=== PATIENT | male | born 1945 | race Caucasian/White ===

== ENCOUNTER 2017-10-15 07:20 | Day surgery (SDC) | payer OTHER ==
[~2017-10-15] VITALS: Ht 182.9 cm; Wt 102.1 kg
[~2017-10-15 07:20] MED LIST: AMLO10 PO; ATOR10 PO; ATOR40TA PO; Augmentin 875-1 EACH PO; Dyazide 37.5-21 EACH PO; GLIM4 PO; Humalog100 UNIT/3 SC; INSULANPEN SC; METF500 PO; Percocet 5-3251 EACH PO; Zestril40 MG PO
== END 2017-10-15 09:21 | disposition home or self-care (01) ==
LOC: ORSCMMR 07:20
PROVIDERS: Internal Medicine Gastroenterology
PROC: 0DBK8ZX Excision of Ascending Colon, Via Natural or Artificial Opening Endoscopic, Diagnostic (ICD-10-PCS; principal; 2017-10-15 08:30)
PROC: 0DBL8ZX Excision of Transverse Colon, Via Natural or Artificial Opening Endoscopic, Diagnostic (ICD-10-PCS; principal; 2017-10-15 08:30)
DX: Z12.11 Encounter for screening for malignant neoplasm of colon (principal); D12.2 Benign neoplasm of ascending colon; D12.3 Benign neoplasm of transverse colon; K57.30 Diverticulosis of large intestine without perforation or abscess without bleeding; E11.9 Type 2 diabetes mellitus without complications; I10 Essential (primary) hypertension; N40.0 Benign prostatic hyperplasia without lower urinary tract symptoms; Z79.4 Long term (current) use of insulin; Z79.899 Other long term (current) drug therapy; Z87.891 Personal history of nicotine dependence
CPT/HCPCS: 82947; 88305; J7120

== ENCOUNTER 2017-11-12 09:21 | Day surgery (SDC) | END 2017-11-12 22:49 | disposition home or self-care (01) ==

== ENCOUNTER → 2017-12-13 | Outpatient (CLI) | payer OTHER ==
[2017-12-13 11:32] LABS: Hematocrit 40.6 % (37.0-53.0); Hemoglobin 13.7 g/dL (13.5-17.5)
[2017-12-13 11:45] LABS: Albumin, Blood 3.5 g/dL (3.4-5.0); Anion Gap 8 mmol/L (6-16); Blood Urea Nitrogen 30 mg/dL (8-24); Bun/Creatinine Ratio 25.2 (12.0-20.0); CO2, Blood 25 mmol/L (21-32); Calcium, Blood 8.8 mg/dL (8.5-10.1); Chloride, Blood 108 mmol/L (98-108); Creatinine, Blood 1.19 mg/dL (0.60-1.20); Glomerular Filtration Rate >60 (60-); Glucose, Blood 244 mg/dL (70-99); Phosphorus, Blood 4.3 mg/dL (2.5-4.9); Potassium, Blood 4.3 mmol/L (3.5-5.5); Sodium, Blood 141 mmol/L (136-145)
[2017-12-13 11:49] LABS: Creatinine, Urine Random 42.4 mg/dL (27.00-270.00); Protein, Urine Random 134.5 mg/dL (0.0-11.9)
== END ==
LOC: OLS 10:32
PROVIDERS: Internal Medicine
DX: N18.3 Chronic kidney disease, stage 3 (moderate) (principal); D63.1 Anemia in chronic kidney disease
CPT/HCPCS: 36415; 80069; 82570; 84156; 85014; 85018

== ENCOUNTER → 2019-03-27 | Outpatient (CLI) | payer OTHER ==
[2019-03-27 09:33] LABS: Creatinine Urine 39.5 mg/dL (27.00-270.00)
== END | disposition home or self-care (01) ==
LOC: LAB 08:15 → LAB SHORT 08:15
PROVIDERS: Internal Medicine
DX: N17.9 Acute kidney failure, unspecified (principal)
CPT/HCPCS: 82575

== ENCOUNTER → 2020-02-26 | Outpatient (CLI) | payer OTHER ==
[2020-02-26 16:49] LABS: Bilirubin, Urine Neg (Neg); Blood, Urine Neg (Neg); Glucose Qualitative, Urine 3+ (Neg); Ketones, Urine Neg (Neg); Leukocyte Esterase, Urine Neg (Neg); Nitrite, Urine Neg (Neg); Protein, Urine 2+ (Neg); Specific Gravity, Urine 1.015 (1.003-1.022); Urobilinogen, Urine NORM (Normal)
[2020-02-26 17:05] LABS: Appearance, Urine Clear (Clear); Color, Urine Yellow (P-Yellow)
[2020-02-26 17:06] LABS: Bacteria Rare /hpf; Red Blood Cells, Urine 0-2 /hpf (0-2); Squamous Epithelial Cells Rare /hpf (Few); White Blood Cells, Urine 0-2 /hpf (0-5)
[2020-02-26 17:26] LABS: Creatinine, Urine Random 98.4 mg/dL (27.00-270.00); Protein, Urine Random 33.4 mg/dL (0.0-11.9)
== END | disposition home or self-care (01) ==
LOC: LAB SHORT 14:39 → LAB 14:39
PROVIDERS: Internal Medicine
DX: N18.2 Chronic kidney disease, stage 2 (mild) (principal)
CPT/HCPCS: 81001; 82570; 84156

== ENCOUNTER → 2021-04-11 | Outpatient (CLI) | payer OTHER ==
[2021-04-11 15:33] LABS: Creatinine, Urine Random 47.1 mg/dL (27.00-270.00); Protein, Urine Random 60.3 mg/dL (0.0-11.9); Protein/Creat Ratio, Ur Random 1.3
== END | disposition home or self-care (01) ==
LOC: LAB SHORT 12:57
PROVIDERS: Internal Medicine
DX: N18.2 Chronic kidney disease, stage 2 (mild) (principal)
CPT/HCPCS: 82570; 84156

== ENCOUNTER → 2021-12-12 | Outpatient (CLI) | payer OTHER ==
[2021-12-12 15:13] LABS: Creatinine, Urine Random 50.6 mg/dL (27.00-270.00); Protein, Urine Random 26.6 mg/dL (0.0-11.9); Protein/Creat Ratio, Ur Random 0.5
== END | disposition home or self-care (01) ==
LOC: LAB SHORT 12:00
PROVIDERS: Internal Medicine Nephrology
DX: N18.31 Chronic kidney disease, stage 3a (principal)
CPT/HCPCS: 82570; 84156

== ENCOUNTER 2022-01-26 10:03 | Day surgery (SDC) | payer OTHER ==
[~2022-01-26] VITALS: Ht 182.9 cm; Wt 102.1 kg
[2022-01-26] MEDS ORDERED: SPIR25 PO (10:21)
[2022-01-26] MEDS ORDERED: ATOR20 (10:21)
== END 2022-01-26 12:53 | disposition home or self-care (01) ==
LOC: ORSCSDS 10:03
PROVIDERS: Student in an Organized Health Care Education/Training Program
PROC: 0DB68ZX Excision of Stomach, Via Natural or Artificial Opening Endoscopic, Diagnostic (ICD-10-PCS; principal; 2022-01-26 11:15)
PROC: 0DB98ZX Excision of Duodenum, Via Natural or Artificial Opening Endoscopic, Diagnostic (ICD-10-PCS; principal; 2022-01-26 11:15)
PROC: 0DB58ZX Excision of Esophagus, Via Natural or Artificial Opening Endoscopic, Diagnostic (ICD-10-PCS; principal; 2022-01-26 11:15)
PROC: 0DB48ZX Excision of Esophagogastric Junction, Via Natural or Artificial Opening Endoscopic, Diagnostic (ICD-10-PCS; principal; 2022-01-26 11:15)
DX: R13.10 Dysphagia, unspecified (principal); E11.9 Type 2 diabetes mellitus without complications; K22.70 Barrett's esophagus without dysplasia; K29.80 Duodenitis without bleeding; K20.90 Esophagitis, unspecified without bleeding; K29.70 Gastritis, unspecified, without bleeding; K44.9 Diaphragmatic hernia without obstruction or gangrene; I10 Essential (primary) hypertension; G47.33 Obstructive sleep apnea (adult) (pediatric); I48.91 Unspecified atrial fibrillation; E66.9 Obesity, unspecified; Z68.30 Body mass index [BMI] 30.0-30.9, adult; Z79.82 Long term (current) use of aspirin; Z79.4 Long term (current) use of insulin; Z79.899 Other long term (current) drug therapy
CPT/HCPCS: 82947; 88305; 88342; J2405; J2704; J7120

== ENCOUNTER 2022-05-02 07:57 | Day surgery (SDC) | payer OTHER ==
[~2022-05-02] VITALS: Ht 182.9 cm; Wt 98.3 kg
[~2022-05-02 07:57] MED LIST changes: +ATOR20; +DOXA4 PO; +SPIR25 PO; +STEGLATRO5 MG PO
[2022-05-02] MEDS ORDERED: HYDCHL25 (08:21)
[2022-05-02] MEDS ORDERED: NOVOLOG FL100 UNIT/3 (08:24)
[2022-05-02] MEDS ORDERED: INSULANI (08:24)
--- NOTE | 2022-05-02 08:43 | NUR ---
05/02/22 0843 NAMRATA JONES 1% LIDOCAINE ATOMIZED PO 3ML PER DR POWERS PRE PROCEDURE
== END 2022-05-02 10:14 | disposition home or self-care (01) ==
LOC: ORSCSDS 07:57
PROVIDERS: Student in an Organized Health Care Education/Training Program
PROC: 0DB68ZX Excision of Stomach, Via Natural or Artificial Opening Endoscopic, Diagnostic (ICD-10-PCS; principal; 2022-05-02 09:15)
PROC: 0DB98ZX Excision of Duodenum, Via Natural or Artificial Opening Endoscopic, Diagnostic (ICD-10-PCS; principal; 2022-05-02 09:15)
PROC: 0DB58ZX Excision of Esophagus, Via Natural or Artificial Opening Endoscopic, Diagnostic (ICD-10-PCS; principal; 2022-05-02 09:15)
PROC: 0DB48ZX Excision of Esophagogastric Junction, Via Natural or Artificial Opening Endoscopic, Diagnostic (ICD-10-PCS; principal; 2022-05-02 09:15)
DX: K20.90 Esophagitis, unspecified without bleeding (principal); B37.81 Candidal esophagitis; K29.80 Duodenitis without bleeding; K29.70 Gastritis, unspecified, without bleeding; K44.9 Diaphragmatic hernia without obstruction or gangrene; E11.22 Type 2 diabetes mellitus with diabetic chronic kidney disease; I12.9 Hypertensive chronic kidney disease with stage 1 through stage 4 chronic kidney disease, or unspecified chronic kidney disease; N18.9 Chronic kidney disease, unspecified; G47.33 Obstructive sleep apnea (adult) (pediatric); E78.5 Hyperlipidemia, unspecified; I48.91 Unspecified atrial fibrillation; I25.10 Atherosclerotic heart disease of native coronary artery without angina pectoris; Z79.82 Long term (current) use of aspirin; Z79.84 Long term (current) use of oral hypoglycemic drugs; Z79.899 Other long term (current) drug therapy
CPT/HCPCS: 82947; 88305; 88312; 88342; J2704; J7120

== ENCOUNTER → 2023-10-23 | Outpatient (CLI) | payer OTHER ==
[~2023-10-23] MED LIST changes: +HYDCHL25; +INSULANI; +NOVOLOG FL100 UNIT/3
== END | disposition home or self-care (01) ==
LOC: LAB SHORT 13:03 → LAB 13:03
DX: D04.39 Carcinoma in situ of skin of other parts of face (principal)
CPT/HCPCS: 88305

== ENCOUNTER 2025-04-21 13:40 | Day surgery (SDC) | payer OTHER ==
[~2025-04-21] VITALS: Ht 182.9 cm; Wt 104.4 kg
[~2025-04-21 13:40] MED LIST changes: +BASAGLAR K100 UNIT/3; +CULTURELLE KID1 EA13; +FARXIGA5 MG PO; +Flonase 0.05% N16 GM; +Glycopyrrolate 0.2 MG/ML 1MLVIAL ONE; +LISI20 PO; +METO25ER PO; +MULTI-VITAMIN1 EAC2 PO; +NITR.4SL SL; +OMEP20ER PO; +Ondansetron HCl 2 MG / ML 2ML Vial ONE; +VITAMIN D5000 UNIT PO; +Vitamin B Comple1 EA PO
[2025-04-21] MEDS ORDERED: LIVALO1 MG (13:55)
[2025-04-21] MEDS ORDERED: NOVOLIN N100 UNIT/2 (13:55)
[2025-04-21 15:43] VITALS: BP 143/61
== END 2025-04-21 15:30 | disposition home or self-care (01) ==
LOC: ORSCSDS 13:40
PROVIDERS: Specialist
PROC: 0D758ZZ Dilation of Esophagus, Via Natural or Artificial Opening Endoscopic (ICD-10-PCS; principal; 2025-04-21 15:15)
PROC: 0DB58ZX Excision of Esophagus, Via Natural or Artificial Opening Endoscopic, Diagnostic (ICD-10-PCS; principal; 2025-04-21 15:15)
PROC: 0DB68ZX Excision of Stomach, Via Natural or Artificial Opening Endoscopic, Diagnostic (ICD-10-PCS; principal; 2025-04-21 15:15)
DX: K22.70 Barrett's esophagus without dysplasia (principal); K44.9 Diaphragmatic hernia without obstruction or gangrene; K29.70 Gastritis, unspecified, without bleeding; G47.33 Obstructive sleep apnea (adult) (pediatric); I48.91 Unspecified atrial fibrillation; E11.22 Type 2 diabetes mellitus with diabetic chronic kidney disease; I12.9 Hypertensive chronic kidney disease with stage 1 through stage 4 chronic kidney disease, or unspecified chronic kidney disease; N18.9 Chronic kidney disease, unspecified; E78.5 Hyperlipidemia, unspecified; E66.9 Obesity, unspecified; Z68.31 Body mass index [BMI] 31.0-31.9, adult; Z79.4 Long term (current) use of insulin; Z79.84 Long term (current) use of oral hypoglycemic drugs; Z79.899 Other long term (current) drug therapy
CPT/HCPCS: 82947; 88305; 88312; 88341; 88342; C1769; J2003; J2405; J2704; J7120

== ENCOUNTER → 2025-09-07 | Outpatient (CLI) | payer OTHER ==
[~2025-09-07] MED LIST changes: -Glycopyrrolate 0.2 MG/ML 1MLVIAL ONE; +LIVALO1 MG; +NOVOLIN N100 UNIT/2; -Ondansetron HCl 2 MG / ML 2ML Vial ONE
[2025-09-07 15:57] LABS: Albumin, Blood 3.3 g/dL (3.4-5.0); Anion Gap 11 mmol/L (3-11); Blood Urea Nitrogen 38 mg/dL (8-24); CO2, Blood 20 mmol/L (21-32); Calcium, Blood 8.3 mg/dL (8.5-10.1); Chloride, Blood 113 mmol/L (98-108); Creatinine, Blood 2.14 mg/dL (0.60-1.20); Glucose, Blood 133 mg/dL (70-99); Phosphorus, Blood 4.2 mg/dL (2.5-4.9); Potassium, Blood 5.5 mmol/L (3.5-5.5); Sodium, Blood 138 mmol/L (136-145)
== END ==
LOC: LAB SHORT 13:39 → LAB 13:39
PROVIDERS: Internal Medicine
DX: E11.65 Type 2 diabetes mellitus with hyperglycemia (principal); I13.0 Hypertensive heart and chronic kidney disease with heart failure and stage 1 through stage 4 chronic kidney disease, or unspecified chronic kidney disease
CPT/HCPCS: 80069

== ENCOUNTER → 2025-09-15 | Outpatient (CLI) | payer OTHER ==
[2025-09-15 12:46] LABS: Campylobacter Sp Not Detected (NOT DETECT); E. Coli O157 Not Detected (NOT DETECT); Enteroaggregative E. coli-EAEC Not Detected (NOT DETECT); Enteropathogenic E. coli-EPEC Not Detected (NOT DETECT); Enterotoxigenic E. coli-ETEC Not Detected (NOT DETECT); Salmonella Sp Not Detected (NOT DETECT); Shiga Toxin-prod E. coli-STEC Not Detected (NOT DETECT); Shigella/Enteroin E. coli-EIEC Not Detected (NOT DETECT); Vibrio Sp Not Detected (NOT DETECT)
== END | disposition home or self-care (01) ==
LOC: LAB 07:30 → LAB SHORT 07:30
PROVIDERS: Internal Medicine
DX: R19.7 Diarrhea, unspecified (principal)
CPT/HCPCS: 87507